=== PATIENT | male | born 1975 | race Caucasian/White ===

== ENCOUNTER → 2024-03-31 14:40 | Outpatient (REF) | payer OTHER, SELFPAY | LOC: HWRAD 14:40 | PROVIDERS: ATTENDING PHYSICIAN Physician Assistant | DX: R05.8 Other specified cough (principal) | CPT/HCPCS: 71046 ==

== ENCOUNTER 2024-11-05 06:32 | Day surgery (SDC) | payer OTHER, SELFPAY ==
--- NOTE | 2024-11-03 07:53 | PTCARENOTE ---
Patients last dose of Wejovy was 10/30- Dr. Lira notified 10/31- no additional interventions indicated
[2024-11-05 11:54] VITALS: BMI 30.7
[2024-11-05 12:01] VITALS: BP 121/79; BMI 30.7
[2024-11-05] MEDS: NORMOSOL-R/PLASMALYTE-A 1000 IV (12:10)
[2024-11-05] MEDS: TYLENOL 1000 MG PO (12:10)
[2024-11-05 15:50] VITALS: BP 116/78; BP 121/79
[2024-11-05 16:00] VITALS: BP 123/84
[2024-11-05 16:15] VITALS: BP 123/85
[2024-11-05 16:18] VITALS: BP 125/88
[2024-11-05 16:39] VITALS: BP 133/93
== END 2024-11-05 16:54 | disposition home or self-care (01) ==
LOC: SDS 06:32
PROVIDERS: ATTENDING PHYSICIAN Otolaryngology
PROC: 09U777Z Supplement Right Tympanic Membrane with Autologous Tissue Substitute, Via Natural or Artificial Opening (ICD-10-PCS; 2024-11-05)
DX: H72.91 Unspecified perforation of tympanic membrane, right ear (principal)
CPT/HCPCS: 69631

== ENCOUNTER 2024-12-09 14:08 | Emergency (ER) | payer OTHER, SELFPAY ==
[2024-12-09] VITALS (9 sets, daily range): BP systolic 131–163; BP diastolic 88–115; BMI 31.6
[2024-12-09 14:50] LABS: % Basophils 1.8 % (0-2); % Eosinophils 8.1 % (0-6); % Immature Granulocytes 0.1 % (0-0.5); % Lymphocytes 33.2 % (20.5-51.1); % Monocytes 5.6 % (1.7-9.3); % Neutrophils 51.2 % (42.2-75.2); Absolute Basophils 0.1 10^3/uL (0-0.2); Absolute Eosinophils 0.6 10^3/uL (0-0.7); Absolute Lymphocytes 2.4 10^3/uL (1.2-3.4); Absolute Monocytes 0.4 10^3/uL (0.1-0.6); Absolute Neutrophils 3.7 10^3/uL (1.4-6.5); Hematocrit 44.7 % (39.0-52.0); Hemoglobin 15.5 g/dL (13.0-18.0); Mean Corp Hgb Conc. 34.7 g/dL (33.0-37.0); Mean Corpuscular Hgb 31.6 pg (27.0-31.0); Mean Corpuscular Volume 91.2 fL (80.0-94.0); Mean Platelet Volume 9.4 fL (7.4-10.4); Nucleated Red Blood Cells % 0 % (-); Platelet Count 316 10^3/uL (130-400); Red Cell Dist. Width 11.7 % (11.5-14.5); White Blood Cell Count 7.1 10^3/uL (4.8-10.8)
[2024-12-09 15:03] LABS: ALT (SGPT) 70 U/L (0-50); AST (SGOT) 29 U/L (17-59); Albumin 4.6 g/dl (3.5-5.0); Alkaline Phosphatase 64 U/L (38-126); Blood Urea Nitrogen 15 mg/dl (9-20); Calcium 9.8 mg/dl (8.4-10.2); Carbon Dioxide 28 mmol/L (22-30); Chloride 98 mmol/L (98-107); Glucose 100 mg/dl (70-99); Potassium 4.1 mmol/L (3.5-5.1); Sodium 135 mmol/L (135-145); Total Bilirubin 1.5 mg/dl (0.2-1.3); Total Protein 7.2 g/dl (6.3-8.2); eGFR > 60.00
[2024-12-09 15:13] LABS: Troponin I < 0.012 ng/ml
--- NOTE | 2024-12-09 18:58 | ED.GENMED ---
History of Present Illness
<Lamar Lira PA-C - Last Filed: 12/10/24 10:09>
General
Chief Complaint: Chest Pain
Source: patient
Exam Limitations: none
Time Seen by Provider: 12/09/24 17:58
Nursing documentation reviewed up to this point in time: agreed with
History of Present Illness
History of Present Illness:
Patient is a 49-year-old male with history hypertension, hyperlipidemia presenting to the emergency department for evaluation of chest pain. Patient states he was working at home, standing up, around 1 PM when he had somewhat sudden onset sharp
pain in his mid chest. He did note a sensation rating up into the back of his throat. He also reports feeling short of breath at the time. He did notice some blurry vision and 'floaters 'although denies any headache, diaphoresis,
lightheadedness/dizziness.
Patient states he was immediately came to the emergency department although symptoms seem to improve after 30 minutes. At this time�patient is essentially asymptomatic although describes feeling shaky.
Patient denies any recent URI symptoms. No fever, cough. No associated tearing pain into his back.
Patient states he recently took a 4 mile hike the other day without difficulty
Past History
<Lamar Lira PA-C - Last Filed: 12/10/24 10:09>
Past History
ED Past Medical History: HTN and Hypercholesterolemia
ED Past Surgical History: Orthopedic
Social History
Tobacco: Non-smoker
Alcohol: Occasional
Personal:
Living: with family
Employment: Employed
Review of Systems
<Lamar Lira PA-C - Last Filed: 12/10/24 10:09>
Review of Systems
Allergies reviewed?: Yes
All Other Systems: ROS reviewed and negative except as documented in HPI and ROS
Phy Exam
<Lamar Lira PA-C - Last Filed: 12/10/24 10:09>
Physical Exam
Physical Exam:
Vitals: Initially hypertensive although improved by my assessment. Otherwise stable vital signs.
General: Patient is well appearing, no acute distress
Skin: Warm and dry, no rashes or lesions
Head: Normocephalic, atraumatic
Eyes: Sclera nonicteric. EOMs intact. No nystagmus.
Throat: No pharyngeal erythema or tonsillar edema. Uvula midline. Protecting airway
Neck: Normal ROM, no cervical spine tenderness, no meningismus. No tenderness to bilateral carotids.
Cardiac: Regular rate and rhythm, no murmurs. No reproducible chest wall tenderness.
Pulm: Normal respiratory effort, no wheezes, rales, rhonchi heard on exam.
Abdomen: Abdomen soft. No abdominal tenderness.
Extremities: No evidence of cyanosis or edema. Palpable and equal distal pulse
Neuro: AAOx3. Grossly intact. Sensation intact bilaterally
Psychiatric: Normal affect.
Scores
<Lamar Lira PA-C - Last Filed: 12/10/24 10:09>
Heart Score for Chest Pain Patients
STEMI patient?: No
History: Moderately Suspicious
ECG: Normal
Age: >45 - <65 years
Risk Factors: >/= 3 Risk Factors or History of CAD
Troponin: </= Normal Limit
Heart Score for Chest Pain Patients: 4
Heart Score Risk: 20.3% MACE over next 6 weeks
Course
<Lamar Lira PA-C - Last Filed: 12/10/24 10:09>
Orders/Labs/Results
Orders:
Orders
12/09/24 14:09
Electrocardiogram (*1) Urgent
Reason for Study: Chest Pain
EKG- Treatment ONCE
12/09/24 14:21
CXR2 [CR Chest - 2 Views ] Urgent
Comment:
Reason For Exam: chest pain
12/09/24 14:24
CMP [Comprehensive Metabolic Panel] Urgent
Complete Blood Count/With Diff Urgent
Troponin I Urgent
12/09/24 18:11
Electrocardiogram (*1) Urgent
Reason for Study: Chest Pain
EKG- Treatment ONCE
12/09/24 19:01
Troponin I Urgent
12/09/24 20:10
CT Chest/abd/pelvis Angio W/wo Urgent
Comment:
Reason For Exam: chest pain, HTN
0.9% Sodium Chloride 1000 ml [Nss] 1,000 ml IV BOLUS
12/09/24 21:21
Acetaminophen [Tylenol] 650 mg PO NOW STA
Abnormal Lab Results
12/09/24
14:24
MCH 31.6 H pg
(27.0-31.0)
Eosinophils % 8.1 H %
(0-6)
Glucose 100 H mg/dl
(70-99)
Total Bilirubin 1.5 H mg/dl
(0.2-1.3)
ALT 70 H U/L
(0-50)
12/09/24 14:24
12/09/24 14:24
Vital Signs
Initial and Last Documented VS:
Initial Vital Signs
Temp Pulse Resp BP Pulse Ox
98.3 F 71 18 163/109 98
12/09/24 14:14 12/09/24 14:14 12/09/24 14:14 12/09/24 14:14 12/09/24 14:14
Last Documented Vital Signs
Temp Pulse Resp BP Pulse Ox
97.8 F 66 16 136/96 97
12/09/24 16:38 12/09/24 21:36 12/09/24 21:36 12/09/24 23:20 12/09/24 21:36
Esalt;Rolly Fontanez DO - Last Filed: 12/10/24 01:34>
Orders/Labs/Results
Orders:
Orders
12/09/24 14:09
Electrocardiogram (*1) Urgent
Reason for Study: Chest Pain
EKG- Treatment ONCE
12/09/24 14:21
CXR2 [CR Chest - 2 Views ] Urgent
Comment:
Reason For Exam: chest pain
12/09/24 14:24
CMP [Comprehensive Metabolic Panel] Urgent
Complete Blood Count/With Diff Urgent
Troponin I Urgent
12/09/24 18:11
Electrocardiogram (*1) Urgent
Reason for Study: Chest Pain
EKG- Treatment ONCE
12/09/24 19:01
Troponin I Urgent
12/09/24 20:10
CT Chest/abd/pelvis Angio W/wo Urgent
Comment:
Reason For Exam: chest pain, HTN
0.9% Sodium Chloride 1000 ml [Nss] 1,000 ml IV BOLUS
12/09/24 21:21
Acetaminophen [Tylenol] 650 mg PO NOW STA
Abnormal Lab Results
12/09/24
14:24
MCH 31.6 H pg
(27.0-31.0)
Eosinophils % 8.1 H %
(0-6)
Glucose 100 H mg/dl
(70-99)
Total Bilirubin 1.5 H mg/dl
(0.2-1.3)
ALT 70 H U/L
(0-50)
12/09/24 14:24
12/09/24 14:24
Vital Signs
Initial and Last Documented VS:
Initial Vital Signs
Temp Pulse Resp BP Pulse Ox
98.3 F 71 18 163/109 98
12/09/24 14:14 12/09/24 14:14 12/09/24 14:14 12/09/24 14:14 12/09/24 14:14
Last Documented Vital Signs
Temp Pulse Resp BP Pulse Ox
97.8 F 66 16 136/96 97
12/09/24 16:38 12/09/24 21:36 12/09/24 21:36 12/09/24 23:20 12/09/24 21:36
<Lamar Lira PA-C - Last Filed: 12/10/24 10:09>
MDM/Problems Addressed
Differential Diagnosis Includes:
Not limited to: GERD, hypertensive urgency, muscle strain, ACS, aortic dissection, PE, etc
MDM/Problems Addressed:
49 year old male presenting with episode of chest pain associated with SOB and blurry vision lasting approximately 30 minutes. No clear exertional or pleuritic component to symptoms. Patient initially hypertensive on arrival although improved by my
initial assessment. Physical exam as above. EKG obtained in triage shows a NSR without any acute ischemic changes. Basic labs without abnormalities. Initial troponin undetectable. CXR normal. Plan to trend troponin. BP did increase to 150s/110s.
Overall low suspicion for aortic dissection although given hypertension and report of associated brief neurologic symptoms will obtain CTA chest/abdomen/pelvis. Patient stable at this time with no chest pain.
Update: Repeat troponin undetectable with no EKG changes. Case signed out to attending physician pending CTA. If negative - plan for discharge home with close cardiology f/u on chest pain hotline given risk factors.
Chronic conditions affecting care:
Hypertension
Acute Exacerbation and/or Progression of Chronic Illness:
Acutely hypertensive
<Lamar Lira PA-C - Last Filed: 12/10/24 10:09>
*Radiology
Radiology exam reviewed: preliminary read by ED provider (CXR reviewed by ar - no acute abnormalities) and radiology read reviewed
*Pulse Oximetry
Patient hypoxic: no
*EKG
Interpreted by ED Provider?: Yes
EKG Intrepretation Date: 12/09/24
Interpretation: abnormal
Comparison EKG: no comparison EKG present
Heart Rate: 73
Rate: normal
Rhythm: sinus
[place]: normal axis
Interval: normal QT interval
QRS Pattern: normal QRS
Ischemia: non-specific ST changes
*[employer] Interpretation
Rate: normal
Interpretation: normal
Heart Rate: 70
Rhythm: sinus
*Critical Care Note
Total Time (30-74mins, 75-104mins- exclusive of procedures): Not Applicable
<Rolly Fontanez DO - Last Filed: 12/10/24 01:34>
Patient Management
Escalation/DeEscalation of care consider admission/obs:
CTA negative for dissection. Troponin x 2 negative. Patient appears well. Does state his blood pressure has been high at home over some time. Will recommend close follow-up with PCP. In addition, CT results reviewed. Strongly recommend the
patient follow-up his CT results with his PCP.
<Rolly Fontanez DO - Last Filed: 12/10/24 01:34>
Update Note
Update Note:
Patient given a copy of his CT scan report to follow-up with his PCP
ED Attending Note
<Lamar Lira PA-C - Last Filed: 12/10/24 10:09>
-
Portions of this chart may have been created with voice recognition software.� Occasional wrong word or��sound alike� substitutions may have occurred due to the inherent limitations of voice recognition software.
<Rolly Fontanez DO - Last Filed: 12/10/24 01:34>
ED Attending Note
Patient seen and examined by attending physician: Yes
I performed the substantive portion of visit, reviewed & personally made and approve the management plan that is documented in note by myself or ELLEN.: Yes
ED Attending Note:
49-year-old male who presents with chest pain. Stated about 30 minutes prior to arrival he was sitting at home work on his computer was started get this discomfort. Also reports some discomfort in his throat but no back pain. No tearing type
pain. No pleuritic pain. Did have a little bit of pain in his right thigh and left ankle. States the pain is much better and improved about 30 to 60 minutes after it started. No shortness of breath. Patient does admit that his blood pressure
has been high at home. States his father had coronary disease but was a heavy drinker and smoker. Exam: Awake and alert, equal bilateral pulses, heart regular, is noted to be hypertensive. Legs with no swelling or asymmetry. Assessment and plan:
Troponin x 2 negative. EKG okay. CTA shows no dissection. Patient was referred to the outpatient cardiac follow-up hotline. I advised him to avoid strenuous or exertional activity till cleared by cardiology
Discharge Plan
Departure
Patient Disposition: Home (Routine Discharge)
Date of Disposition: 12/09/24
Time of Disposition: 23:11
Patient with high blood pressure during this ER visit?: Yes
Condition: Good
Covid-19: Not Applicable
Discharge Problem:
Chest pain
Instructions: Chest Pain CBC Follow Up, BLOOD PRESSURE
Prescriptions:
No Action
multivitamin Tablet
1 tab PO DAILY
metoprolol succinate 50 mg Tablet Extended Release 24 Hr
50 mg PO DAILY
escitalopram oxalate 10 mg Tablet
10 mg PO DAILY
Wegovy 1.7 mg/0.75 mL Pen Injector
1.7 mg SC TH
naltrexone 4.5 mg Capsule
4.5 mg PO DAILY
Biotene
1 cap PO DAILY
atorvastatin 40 MG tablet
40 mg PO DAILY
amlodipine 10 MG tablet
10 mg PO DAILY
Referrals:
Daniel Mercedes MD [Active] - Next open appointment
Mey Hansen PA-C [Family Provider] -
Activity Restrictions/Additional Instructions:
RETURN TO THE EMERGENCY DEPARTMENT WITH ANY CHEST PAIN WORSE WITH EXERTION OR CHEST PAIN ASSOCIATED WITH SHORTNESS OF BREATH, DIZZINESS/LIGHTHEADEDNESS, SEVERE BACK PAIN, OR ANY OTHER CONCERNS
-As discussed - your labwork, EKGs, and imaging showed no acute abnormalities today.
-It is important to stay well hydrated.
-Follow-up with cardiology for further evaluation/management of chest pain and high blood pressure
Monitor your symptoms closely and return to the emergency department with any acute worsening/new symptoms or any other concerns
Interventions
Interventions:
*Risk Screen - Suicide Last Done: 12/09/24 14:14
*General Assessment Last Done: 12/10/24 00:27
*Neglect/Abuse Screening Last Done: 12/09/24 14:14
*ED COVID-19 Vaccine History Last Done: 12/09/24 14:14
*Nursing Disposition Last Done: 12/10/24 00:27
ED- Cardiac Assessment Last Done: 12/09/24 20:30
Discharge Date and Time
Discharge Date/Time: 12/10/24 00:29
Print Language: FRENCH
[2024-12-09 19:36] LABS: Troponin I < 0.012 ng/ml
[2024-12-09] MEDS: NSS 1000 IV (20:29)
[2024-12-09] MEDS: TYLENOL 650 MG PO (21:31)
== END 2024-12-10 00:29 | disposition home or self-care (01) ==
LOC: EMR 14:08
PROVIDERS: Emergency Medicine; EMERGENCY PHYSICIAN Emergency Medicine; FAMILY PHYSICIAN Physician Assistant Medical
DX: R07.9 Chest pain, unspecified (principal); R06.02 Shortness of breath; H53.8 Other visual disturbances; I10 Essential (primary) hypertension; E78.00 Pure hypercholesterolemia, unspecified; Z82.49 Family history of ischemic heart disease and other diseases of the circulatory system
CPT/HCPCS: 99285; 71046; 71275; 74174; 80053; 84484; 85025; 93005; Q9967

== ENCOUNTER → 2024-12-15 11:58 | Outpatient (REF) | payer OTHER, SELFPAY | LOC: RCS 11:58 | PROVIDERS: ATTENDING PHYSICIAN Internal Medicine Cardiovascular Disease | DX: R07.89 Other chest pain (principal); R06.02 Shortness of breath; Z82.49 Family history of ischemic heart disease and other diseases of the circulatory system | CPT/HCPCS: 93017 ==

== ENCOUNTER → 2024-12-24 07:10 | Outpatient (REF) | payer OTHER, SELFPAY | LOC: RCS 07:10 | PROVIDERS: ATTENDING PHYSICIAN Internal Medicine Cardiovascular Disease; FAMILY PHYSICIAN Physician Assistant Medical | DX: R07.89 Other chest pain (principal); R06.02 Shortness of breath; Z82.49 Family history of ischemic heart disease and other diseases of the circulatory system | CPT/HCPCS: 93306 ==

== ENCOUNTER → 2025-01-28 13:54 | Outpatient (REF) | payer OTHER, SELFPAY | LOC: RAD 13:54 | PROVIDERS: ATTENDING PHYSICIAN Orthopaedic Surgery; FAMILY PHYSICIAN Physician Assistant Medical | DX: I82.402 Acute embolism and thrombosis of unspecified deep veins of left lower extremity (principal) | CPT/HCPCS: 93971 ==

== ENCOUNTER → 2025-05-04 09:00 | Outpatient (REF) | payer OTHER, SELFPAY | LOC: HWRAD 09:00 | PROVIDERS: ATTENDING PHYSICIAN Physician Assistant Medical | DX: R91.1 Solitary pulmonary nodule (principal) | CPT/HCPCS: 71250 ==